=== PATIENT | female | born 1955 | race Caucasian/White ===

== ENCOUNTER 2020-05-14 13:50 | Emergency (ER) | payer OTHER, MEDICARE ==
[2020-05-14 14:00] VITALS: TEMP 97; BMI 32.4
[2020-05-14 15:43] LABS: BASO % 0.3 % (0-2.0); EOS % 0.2 % (0-4.5); HEMOGLOBIN 14.9 GM/dL (10.7-15.3); LYMPH % 22.3 % (8-40); MCH 28.4 pg (25.7-33.7); MEAN CELL VOLUME 83.6 fl (80-96); MEAN PLT VOLUME 8.1 fl (7.5-11.1); MONO % 5.8 % (3.8-10.2); NEUT % 71.4 % (42.8-82.8); PLATELET COUNT 276 K/MM3 (134-434); RBC 5.26 M/mm3 (3.60-5.2); RDW 13.7 % (11.6-15.6); WHITE BLOOD COUNT 10.7 K/mm3 (4.0-10.0)
[2020-05-14] MEDS ORDERED: KETOROLAC TROMETHAMINE 15 MG/ML VIAL IVPUSH ONE (15:47)
[2020-05-14] MEDS ORDERED: KETOROLAC TROMETHAMINE 15 MG/ML VIAL ONE (15:59)
[2020-05-14 16:03] LABS: ALBUMIN 3.9 g/dl (3.4-5.0); BLOOD UREA NITROGEN 16.1 mg/dL (7-18); CALCIUM 9.7 mg/dL (8.5-10.1)
[2020-05-14 16:06] LABS: CREATININE 0.7 mg/dL (0.55-1.3)
[2020-05-14 16:08] LABS: TOT PROT 7.2 g/dl (6.4-8.2)
[2020-05-14 17:53] VITALS: BP 106/69; PULSE 63
== END 2020-05-14 18:37 | disposition home or self-care (01) ==
LOC: JER 13:50
PROC: 3E0333Z Introduction of Anti-inflammatory into Peripheral Vein, Percutaneous Approach (ICD-10-PCS; principal; 2020-05-14)
DX: R07.89 Other chest pain (principal)
CPT/HCPCS: 36415; 71275-TC; 80053; 85025; 99284-25; Q9967

== ENCOUNTER 2021-01-12 22:39 | Emergency (ER) | payer OTHER, MEDICARE ==
[2021-01-12 22:45] VITALS: BP 116/75; PULSE 60; TEMP 97; BMI 30.4
== END 2021-01-12 23:31 | disposition home or self-care (01) ==
LOC: JER 22:39
DX: Z48.01 Encounter for change or removal of surgical wound dressing (principal)
CPT/HCPCS: 99281-25